=== PATIENT | male | born 1960 | race Caucasian/White ===

== ENCOUNTER → 2017-03-03 14:22 | Outpatient (CLI) | payer MEDICARE ==
[~2017-03-03 14:22] MED LIST: BACLOFEN20 M1 PO; BAYER ASPIRIN325 MG PO; NEURONTIN 400400 MG PO; NORVASC5 MG PO; PEPCID AC20 MG PO
[2017-03-03 15:42] LABS: BASOPHILS 0.4 % (0-2); EOSINOPHILS 3.1 % (0-7); HEMATOCRIT 47.1 % (42.0-54.0); HEMOGLOBIN 16.2 g/dL (13.5-17.5); IMMATURE GRANULOCYTES 0.2 % (0-5); LYMPHOCYTES 27.9 % (15-50); MCH 32.6 pg (26.0-34.0); MCHC 34.4 g/dL (31.0-37.0); MCV 94.8 fL (80.0-100.0); MEAN PLATELET VOLUME 11.5 fL (7.4-10.4); MONOCYTES 11.5 % (2-11); NEUTROPHILS 56.9 % (40-80); PLATELET COUNT 115 10x3/uL (130-400); RBC 4.97 10x6/uL (4.20-6.10); RDW 13.8 % (11.5-14.5); WBC 5.6 10x3/uL (4.8-10.8)
[2017-03-03 16:09] LABS: CALC OSMOLALITY 273 mosm/kg (275-300); CALCIUM 9.2 mg/dL (8.5-10.1); CARBON DIOXIDE 25.8 mmol/L (21.0-32.0); CHLORIDE - SERUM 102 mmol/L (98-107); CREATININE - SERUM 0.8 mg/dL (0.6-1.3); GLUCOSE 102 mg/dL (74-106); SODIUM 137 mmol/L (136-145); UREA NITROGEN 12 mg/dL (7-18); eGFR NON AFRICAN AMERICAN > 90 mL/min (90-120)
[2017-03-03 16:24] LABS: APPEARANCE HAZY (CLEAR); BILIRUBIN NEGATIVE (NEGATIVE); COLOR YELLOW (YELLOW); GLUCOSE NEGATIVE (NEGATIVE); KETONE NEGATIVE (NEGATIVE); NITRITE POSITIVE (NEGATIVE); PROTEIN TRACE mg/dL (NEGATIVE); UROBILINOGEN NORMAL (NORMAL)
[2017-03-03 16:25] LABS: BACTERIA MANY /hpf (NONE SEEN); RED CELLS - URINE 0-5 /hpf (0-5); WHITE CELLS - URINE 25-50 /hpf (0-5)
[2017-03-25 06:16] VITALS: BMI 46.9
== END | disposition home or self-care (01) ==
LOC: D.US 14:22
PROVIDERS: Urology
DX: R97.20 Elevated prostate specific antigen [PSA] (principal); Z12.5 Encounter for screening for malignant neoplasm of prostate

== ENCOUNTER → 2017-03-15 12:39 | Outpatient (CLI) | payer MEDICARE ==
[2017-03-25 06:16] VITALS: BMI 46.9
== END | disposition home or self-care (01) ==
LOC: D.CT 12:39
DX: N20.0 Calculus of kidney (principal)

== ENCOUNTER 2017-03-25 05:34 | Day surgery (SDC) | payer MEDICARE ==
[2017-03-23 15:16] LABS: HEMATOCRIT 46.2 % (42.0-54.0); HEMOGLOBIN 15.7 g/dL (13.5-17.5); MCV 94.1 fL (80.0-100.0); MEAN PLATELET VOLUME 11.6 fL (7.4-10.4); RBC 4.91 10x6/uL (4.20-6.10); RDW 13.8 % (11.5-14.5); WBC 5.5 10x3/uL (4.8-10.8)
[~2017-03-25] VITALS: Ht 167.6 cm; Wt 131.5 kg
[~2017-03-25 05:34] MED LIST changes: -BAYER ASPIRIN325 MG PO
[2017-03-25] MEDS ORDERED: BAYER ASPIRIN325 MG PO (06:14)
[2017-03-25 06:16] VITALS: BP 156/79; Ht 167.6 cm; Wt 131.5 kg
--- NOTE | 2017-03-25 08:52 | NUR ---
0850 DISCHARGE INSTRUCTIONS COMPLETE. NO ANESTHESIA THEREFORE PT AAAX3. NO PRESCRIPTIONS GIVEN. PT ESCORTED OUT.
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
== END 2017-03-25 08:50 | disposition home or self-care (01) ==
LOC: D.OPS 05:34 → D.PAN 07:30 → D.OPS 07:30
PROVIDERS: Anesthesiology
DX: N40.1 Benign prostatic hyperplasia with lower urinary tract symptoms (principal); N39.498 Other specified urinary incontinence; N13.8 Other obstructive and reflux uropathy; N32.89 Other specified disorders of bladder; N31.8 Other neuromuscular dysfunction of bladder; T14.8XXS Other injury of unspecified body region, sequela; X58.XXXS Exposure to other specified factors, sequela; Z01.812 Encounter for preprocedural laboratory examination

== ENCOUNTER → 2017-07-06 17:59 | Outpatient (CLI) | payer MEDICARE ==
[2017-03-25 06:16] VITALS: BMI 46.9
[~2017-07-06 17:59] MED LIST changes: +BAYER ASPIRIN325 MG PO
== END | disposition home or self-care (01) ==
LOC: D.LABREF 17:59
DX: N39.0 Urinary tract infection, site not specified (principal)

== ENCOUNTER → 2017-09-06 08:04 | Outpatient (CLI) | payer MEDICARE ==
[2017-03-25 06:16] VITALS: BMI 46.9
== END | disposition home or self-care (01) ==
LOC: D.US 08:00
DX: D69.6 Thrombocytopenia, unspecified (principal)

== ENCOUNTER → 2019-04-05 17:45 | Outpatient (CLI) | payer MEDICARE ==
[2017-03-25 06:16] VITALS: BMI 46.9
== END | disposition home or self-care (01) ==
LOC: D.LABREF 17:45
PROVIDERS: ATTEND Urology
DX: R82.90 Unspecified abnormal findings in urine (principal); R31.9 Hematuria, unspecified

== ENCOUNTER → 2019-04-10 08:59 | Outpatient (CLI) | payer MEDICARE ==
[2017-03-25 06:16] VITALS: BMI 46.9
== END | disposition home or self-care (01) ==
LOC: D.US 08:59
PROVIDERS: ATTEND Urology
DX: N02.9 Recurrent and persistent hematuria with unspecified morphologic changes (principal)

== ENCOUNTER 2019-05-02 05:44 | Day surgery (SDC) | payer MEDICARE ==
[~2019-05-02] VITALS: Ht 167.6 cm; Wt 121.1 kg
[~2019-05-02 05:44] MED LIST changes: +GEMFIBROZIL600 MG PO; +MULTI-DAY VITAM1 TAB PO; +STERAPRED DS 1010 MG
[2019-05-02 06:14] LABS: HEMATOCRIT 49.7 % (42.0-54.0); HEMOGLOBIN 16.9 g/dL (13.5-17.5); MCH 30.7 pg (26.0-34.0); MCV 90.2 fL (80.0-100.0); RBC 5.51 10x6/uL (4.20-6.10); WBC 5.8 10x3/uL (4.8-10.8)
[2019-05-02 06:33] LABS: ALBUMIN 3.9 g/dL (3.4-5.0); ALKALINE PHOSPHATASE 58 U/L (46-116); ALT (SGPT) 38 U/L (10-68); BILIRUBIN - TOTAL 0.84 mg/dL (0.2-1.3); CALC OSMOLALITY 289 mosm/kg (275-300); CALCIUM 9.3 mg/dL (8.5-10.1); CARBON DIOXIDE 32.6 mmol/L (21.0-32.0); CHLORIDE - SERUM 107 mmol/L (98-107); CREATININE - SERUM 0.8 mg/dL (0.6-1.3); GLUCOSE 85 mg/dL (74-106); POTASSIUM - SERUM 4.4 mmol/L (3.5-5.1); PROTEIN - SERUM 7.8 g/dL (6.4-8.2); SODIUM 147 mmol/L (136-145); UREA NITROGEN 11 mg/dL (7-18); eGFR NON AFRICAN AMERICAN > 90 mL/min (90-120)
[2019-05-02] MEDS ORDERED: PREDNISONE10 MG PO (06:54)
[2019-05-02 06:56] VITALS: Ht 167.6 cm; Wt 121.1 kg
[2019-05-02 07:13] LABS: PLATELET COUNT 48 10x3/uL (130-400)
--- NOTE | 2019-05-02 07:47 | NUR ---
0714 RECEIVED CRITICAL PLATELET LEVEL RESULTS (48,000) FROM RACHEL IN THE LAB. 0722 REPORTED PLATELET COUNT TO DR NATARAJAN. ORDERS RECEIVED TO TRANSFUSE 2 UNITS OF PLATELETS TO PT PRIOR TO SURGERY. ORDERS ENTERED FOR TYPE AND CROSSMATCH AND 2 UNITS OF PLATELETS.
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
[2019-05-02 09:25] LABS: PLATELET ESTIMATE DECREASED
--- NOTE | 2019-05-02 09:37 | NUR ---
DC INSTRUCTIONS GIVEN TO PT. STATES UNDERSTANDING. DC'D IV CATH FULLY INTACT. PLATELET #1 INFUSED FROM 08 TO 0858 PLATELET #2 INFUSED FROM 09 TO 09 PT LEFT UNIT VIA HIS MOTORIZED WC AT 0935
--- NOTE | 2019-05-02 09:51 | NUR ---
PT LEFT UNIT VIA HIS MOTORIZED WC AT 7447
== END 2019-05-02 09:35 | disposition home or self-care (01) ==
LOC: D.OPS 05:44 → D.PAN 09:00 → D.OPS 09:00 → D.PAN 09:55 → D.OPS 09:55 → D.PAN 13:15 → D.OPS 13:50 → D.PAN 13:50 → D.OPS 14:30
PROVIDERS: Anesthesiology; ATTEND Urology
DX: N02.9 Recurrent and persistent hematuria with unspecified morphologic changes (principal); N31.8 Other neuromuscular dysfunction of bladder; N39.0 Urinary tract infection, site not specified

== ENCOUNTER → 2019-06-28 20:42 | Outpatient (CLI) | payer MEDICARE ==
[2019-05-02 06:56] VITALS: BMI 43.2
[~2019-06-28 20:42] MED LIST changes: +PREDNISONE10 MG PO
== END | disposition home or self-care (01) ==
LOC: D.LABREF 20:42
PROVIDERS: ATTEND Urology
DX: R82.90 Unspecified abnormal findings in urine (principal)

== ENCOUNTER 2019-09-18 09:56 | Day surgery (SDC) | payer MEDICARE ==
[~2019-09-18] VITALS: Ht 167.6 cm; Wt 120.5 kg
[2019-09-18 10:23] LABS: HEMATOCRIT 50.3 % (42.0-54.0); HEMOGLOBIN 17.3 g/dL (13.5-17.5); MCH 31.4 pg (26.0-34.0); MCHC 34.4 g/dL (31.0-37.0); MCV 91.3 fL (80.0-100.0); MEAN PLATELET VOLUME 11.1 fL (7.4-10.4); RBC 5.51 10x6/uL (4.20-6.10); RDW 13.9 % (11.5-14.5)
[2019-09-18 10:31] LABS: PLATELET COUNT 35 10x3/uL (130-400)
[2019-09-18 10:51] VITALS: BP 157/75; Ht 167.6 cm; Wt 120.5 kg
[2019-09-18 11:02] LABS: ANISOCYTOSIS OCC; PLATELET ESTIMATE DECREASED; SMUDGE CELLS OCC
--- NOTE | 2019-09-18 11:23 | NUR ---
Pt states that he does not want anesthesia, spoke with Severo regarding administration of pepcid and he states to hold pepcid at this time.
[2019-09-18 11:36] LABS: INR 1.15 (0.85-1.17); PROTIME 14.6 SECONDS (11.6-15.0)
--- NOTE | 2019-09-18 14:00 | NUR ---
1400 LAB ORDERS IN POSTPROCEDURE ORDERS. DR. SANDOVAL NOTIFIED. STATES PATIENT MAY BE DISCHARGED AFTER LAB IS DRAWN PRIOR TO RESULTS BEING POSTED. LAB HERE. Heber BRADY R.N.
[2019-09-18 14:14] LABS: BASOPHILS 0.3 % (0-2); EOSINOPHILS 1.9 % (0-7); HEMOGLOBIN 15.4 g/dL (13.5-17.5); IMMATURE GRANULOCYTES 0.2 % (0-5); LYMPHOCYTES 29.4 % (15-50); MCH 30.7 pg (26.0-34.0); MCHC 34.2 g/dL (31.0-37.0); MCV 89.8 fL (80.0-100.0); MEAN PLATELET VOLUME 11.1 fL (7.4-10.4); NEUTROPHILS 58.2 % (40-80); RBC 5.01 10x6/uL (4.20-6.10); RDW 13.7 % (11.5-14.5); WBC 5.8 10x3/uL (4.8-10.8)
[2019-09-18 14:24] LABS: PLATELET COUNT 43 10x3/uL (130-400)
[2019-09-18 14:36] LABS: ALBUMIN 3.8 g/dL (3.4-5.0); ALKALINE PHOSPHATASE 66 U/L (30-120); ALT (SGPT) 26 U/L (10-68); BILIRUBIN - DIRECT 0.31 mg/dL (0.00-0.30); BILIRUBIN - INDIRECT 0.54 mg/dL (0.00-1.00); BILIRUBIN - TOTAL 0.85 mg/dL (0.2-1.3); CALC OSMOLALITY 281 mosm/kg (275-300); CALCIUM 8.9 mg/dL (8.5-10.1); CARBON DIOXIDE 28.5 mmol/L (21.0-32.0); CHLORIDE - SERUM 102 mmol/L (98-107); CREATININE - SERUM 0.8 mg/dL (0.6-1.3); GLUCOSE 115 mg/dL (74-106); PROTEIN - SERUM 7.5 g/dL (6.4-8.2); SODIUM 142 mmol/L (136-145); UREA NITROGEN 6 mg/dL (7-18); eGFR NON AFRICAN AMERICAN > 90 mL/min (90-120)
[2019-09-18 14:44] LABS: POTASSIUM - SERUM 2.8 mmol/L (3.5-5.1)
--- NOTE | 2019-09-18 15:49 | NUR ---
0698 CRITICAL LAB RESULTS CALLED K+: 2.8 & PLATELET: 43. DR. SANDOVAL INFORMED BY KYLE Martinez STATES OKAY TO D/C. PT DRESSED WITH ASSISTANCE. TRANSFERRED TO MOTORIZED WHEELCHAIR BY THIS NURSE & [place] RODRIGUEZ R.N.. Heber BRADY R.N. 0111 GIVEN DISCHARGE INFORMATION INCLUDING: MED REC, SHEET LISTING NSAIDS TO AVOID FOR 14 DAYS, POST TRANSFUSION INSTRUCTIONS, RTC APPT, D/C INSTRUCTIONS SHEET POST ENDOSCOPIC PROCEDURES, HIGH FIBER DIET INFORMATION. PT VOICED UNDERSTANDING. PT STATES HAS AN APPT. WITH DR. SAENZ TOMORROW. PT INSTRUCTED TO TELL HIM LAB DONE @ [facility] 09/18/19. TO PRIVATE CAR PER OWN WHEELCHAIR. HOME WITH BROTHER. Heber BRADY R.N.
--- NOTE | 2019-09-19 14:16 | OP ---
PATIENT NAME: ELENI OTERO MEDICAL RECORD: [id number] :62 LOCATION:[facility] ADMISSION DATE: SURGEON: JORJE SANDOVAL DO DATE OF OPERATION: 09/18/2019 PROCEDURE: Colonoscopy with polypectomy. INDICATIONS FOR PROCEDURE: Screening for colorectal cancer and periumbilical abdominal pain. SCOPE: [employer] video pediatric colonoscope. ESTIMATED BLOOD LOSS: None. FINDINGS: Informed consent was given. The patient was placed on his left side. A digital rectal examination was performed and was normal. The endoscope was then advanced under direct visualization through the rectum to the cecum, confirmed by the presence of the appendiceal orifice and ileocecal valve. The endoscope was slowly withdrawn and mucosa was carefully examined. The prep quality was fair. There were 3 polyps visualized on today's examination. Two were located in the rectum. They were both benign appearing and sessile and ranged in size from 4-5 mm in diameter. They were both removed using hot snare. In the transverse colon, there was another benign appearing sessile polyp, which measured approximately 4 mm in diameter. It was removed using hot snare. There was evidence of moderate diverticulosis involving the entire colon. There was no evidence of diverticulitis. Retroflexion was performed in the rectum with visualization of a normal appearing rectal wall. The endoscope was withdrawn from the patient. The patient tolerated the procedure well and there were no complications. IMPRESSION: 1. Three polyps as described above, removed using a hot snare. 2. Moderate diverticulosis of the entire colon. PLAN AND RECOMMENDATIONS: 1. Discharge home when recovery parameters are met. 2. Follow up biopsy specimen results. 3. High fiber diet. 4. Continue current medications. 5. Recall colonoscopy in 3-5 years for continued surveillance based on personal history of polyps. TRANSINT:[id number] Voice Confirmation ID: [id number] DOCUMENT ID: [id number] JORJE SANDOVAL DO at 1416 CC: [id number] DICTATION DATE: 09/18/19 1322 PEARL PELLER: 09/18/19 2319 [facility] 09/18/19 [place] [address]
== END 2019-09-18 14:55 | disposition home or self-care (01) ==
LOC: D.OPS 09:56
PROVIDERS: Anesthesiology; ATTEND Internal Medicine Gastroenterology
DX: Z12.11 Encounter for screening for malignant neoplasm of colon (principal); R10.33 Periumbilical pain; K63.5 Polyp of colon; K62.1 Rectal polyp

== ENCOUNTER → 2019-09-27 19:40 | Outpatient (CLI) | payer MEDICARE ==
[2019-09-18 10:51] VITALS: BMI 42.8
[2019-09-27 20:05] LABS: HEMATOCRIT 47.3 % (42.0-54.0); HEMOGLOBIN 15.5 g/dL (13.5-17.5); MCH 30.9 pg (26.0-34.0); MCHC 32.8 g/dL (31.0-37.0); MCV 94.2 fL (80.0-100.0); MEAN PLATELET VOLUME 12.7 fL (7.4-10.4); PLATELET COUNT 56 10x3/uL (130-400); RBC 5.02 10x6/uL (4.20-6.10); RDW 14.1 % (11.5-14.5); WBC 8.5 10x3/uL (4.8-10.8)
[2019-09-27 21:55] LABS: LYMPHOCYTES 19 % (15-50); MONOCYTES 3 % (2-11); NEUTROPHILS 78 % (40-80); PLATELET ESTIMATE DECREASED
== END | disposition home or self-care (01) ==
LOC: D.LABREF 19:40
PROVIDERS: ATTEND Legal Medicine
DX: D69.6 Thrombocytopenia, unspecified (principal)